=== PATIENT | female | born 1945 | race Caucasian/White ===

== ENCOUNTER 2024-05-10 10:15 | Inpatient (IN) | payer OTHER ==
[2024-05-10 11:40] LABS: BASO % 0.7 % (0-2.0); EOS % 1.6 % (0-4.5); HEMATOCRIT 26.6 % (32.4-45.2); HEMOGLOBIN 8.5 GM/dL (10.7-15.3); LYMPH % 10.9 % (8-40); MCHC 32.1 g/dl (32.0-36.0); MEAN CELL VOLUME 80.9 fl (80-96); MEAN PLT VOLUME 6.9 fl (7.5-11.1); MONO % 6.1 % (3.8-10.2); NEUT % 80.7 % (42.8-82.8); PLATELET COUNT 786 10^3/uL (134-434); RBC 3.29 M/mm3 (3.60-5.2); RDW 17.6 % (11.6-15.6); WHITE BLOOD COUNT 11.2 K/mm3 (4.0-10.0)
[2024-05-10 11:41] LABS: VENOUS BASE EXCESS 0.3 mmol/L (-2-2); VENOUS PCO2 43.8 mmHg (38-52); VENOUS PH 7.383 (7.310-7.410)
[2024-05-10 11:54] LABS: INR 1.14 (0.83-1.09); PROTHROMBIN TIME (PATIENT) 12.8 SEC (9.7-13.0)
[2024-05-10] MEDS ORDERED: THIAMINE HCL 200 MG/2 ML VIAL ONE (12:01)
[2024-05-10] MEDS ORDERED: PIPERACILLIN/TAZOB 4.5 GM 4.5 GM/100 ML BAG IVPB ONE (12:02)
[2024-05-10 12:08] LABS: POTASSIUM 3.4 mmol/L (3.5-5.1)
[2024-05-10 12:10] LABS: ALBUMIN 2.8 g/dl (3.4-5.0); BLOOD UREA NITROGEN 17.4 mg/dL (7-18); CALCIUM 9.1 mg/dL (8.5-10.1)
[2024-05-10 12:13] LABS: CREATININE 0.7 mg/dL (0.55-1.3)
[2024-05-10 12:15] LABS: BILIRUBIN,TOTAL 0.9 mg/dL (0.2-1); TOT PROT 7.2 g/dl (6.4-8.2)
[2024-05-10] MEDS: THIAMINE HCL 200 MG/2 ML VIAL IVPB ONE (12:16)
[2024-05-10] MEDS: SODIUM CHLORIDE 0.9% 500 ML INFUS.BAG IV ONE (12:16)
[2024-05-10] MEDS: PIPERACILLIN/TAZOB 4.5 GM 4.5 GM in DEXTROSE 5%-WATER 100 ML IVPB ONE (12:16)
[2024-05-10] MEDS ORDERED: VANCOMYCIN 1 GM PREMIX (F) 1 GM/200 ML BAG ONE (14:08)
[2024-05-10] MEDS: VANCOMYCIN 1,000 MG in DEXTROSE 5%-WATER - 250 ML IVPB ONE ×2 (14:19)
[2024-05-10] MEDS: FLUCONAZOLE 400 MG/NS 200 ML IVPB ONE (16:29)
[2024-05-10] MEDS: ALBUTEROL SO4 2.5/IPRATROPIUM 0.5 INH SOL 3 ML VIAL.NEB. NEB SCH (20:05)
[2024-05-11] MEDS: PANTOPRAZOLE SODIUM 40 MG VIAL IVPUSH SCH (00:24)
[2024-05-11] MEDS: D5-1/2NS+20 MEQ KCL - 20 MEQ/1,000 ML INFUS.BAG IV SCH ×2 (00:25→17:30)
[2024-05-11] MEDS: KCL 10 MEQ IVPB 10 MEQ/100 ML INFUS.BAG IVPB SCH (00:25)
[2024-05-11 03:55] LABS: EPI CELLS 32 /uL (0-25.1); HYALINE CASTS 0 /uL (0-3.1); PH,URINE 7.5 (5.0-8.0); URINE APPEARANCE CLEAR; URINE BACTERIA 173 /uL (0-1359); URINE BILIRUBIN NEGATIVE (NEGATIVE); URINE COLOR YELLOW; URINE GLUCOSE (UA) NEGATIVE (NEGATIVE); URINE KETONE NEGATIVE (NEGATIVE); URINE LEUK ESTERASE 2+ (NEGATIVE); URINE NITRITE NEGATIVE (NEGATIVE); URINE PROTEIN NEGATIVE (NEGATIVE); URINE RBC 15 /uL (0-23.9); URINE WBC 93 /uL (0-25.8)
[2024-05-11 09:01] LABS: BASO % 0.5 % (0-2.0); EOS % 3.4 % (0-4.5); HEMATOCRIT 22.3 % (32.4-45.2); HEMOGLOBIN 7.4 GM/dL (10.7-15.3); LYMPH % 14.1 % (8-40); MCH 26.2 pg (25.7-33.7); MCHC 33.1 g/dl (32.0-36.0); MEAN CELL VOLUME 79.2 fl (80-96); MEAN PLT VOLUME 6.5 fl (7.5-11.1); MONO % 6.9 % (3.8-10.2); NEUT % 75.1 % (42.8-82.8); PLATELET COUNT 637 10^3/uL (134-434); RBC 2.82 M/mm3 (3.60-5.2); RDW 17.6 % (11.6-15.6); WHITE BLOOD COUNT 7.9 K/mm3 (4.0-10.0)
[2024-05-11 09:07] LABS: INR 1.13 (0.83-1.09)
[2024-05-11 09:09] LABS: CHLORIDE 94 mmol/L (98-107); SODIUM 132 mmol/L (136-145)
[2024-05-11 09:12] LABS: BLOOD UREA NITROGEN 6.5 mg/dL (7-18); GLUCOSE,RANDOM 86 mg/dL (74-106)
[2024-05-11 09:13] LABS: CALCIUM 7.8 mg/dL (8.5-10.1)
[2024-05-11 09:14] LABS: CO2 28 mmol/L (21-32); MAGNESIUM 1.7 mg/dL (1.8-2.4)
[2024-05-11] MEDS: LEVOTHYROXINE NA 88 MCG TABLET (FP) PO SCH (09:14)
[2024-05-11] MEDS: MELATONIN 5 MG TABLETS PO ONE (09:14)
[2024-05-11 09:15] LABS: CREATININE 0.5 mg/dL (0.55-1.3); SGOT/AST 32 U/L (15-37); SGPT/ALT 13 U/L (13-61)
[2024-05-11 09:16] LABS: BILIRUBIN,TOTAL 0.6 mg/dL (0.2-1); TOT PROT 5.8 g/dl (6.4-8.2)
[2024-05-11 09:17] LABS: ALK PHOS 94 U/L (45-117)
[2024-05-11 09:20] LABS: ALBUMIN 2.2 g/dl (3.4-5.0); ANION GAP 10 mmol/L (4-13); POTASSIUM 2.8 mmol/L (3.5-5.1)
[2024-05-11 12:26] LABS: IRON SERUM 15 ug/dL (50-175); TOTAL IRON BINDING CAPACITY 160 ug/dL (250-450)
[2024-05-11] MEDS: CLOPIDOGREL BISULFATE 75 MG TABLET (FP) PO SCH (13:53)
[2024-05-11] MEDS: MAGNESIUM OXIDE 400 MG TABLET (FP) PO SCH (13:53)
[2024-05-11] MEDS: ASPIRIN COATED 81 MG TABLET.EC PO SCH (13:53)
[2024-05-11] MEDS: POTASSIUM CHLORIDE ORAL LIQUID 20 MEQ/15 ML PO SCH (13:53)
[2024-05-11 15:03] VITALS: BMI 14.4
[2024-05-11] MEDS: IRON SUCROSE INJECTION 200 MG in SODIUM CHLORIDE 100 ML IVPB ONE (16:04)
[2024-05-11] MEDS: POTASSIUM CHLORIDE TABS 20 MEQ TABLET.ER (FP) PO ONE (18:41)
[2024-05-11] MEDS: MELATONIN 5 MG TABLETS PO SCH (21:07)
[2024-05-12] MEDS: FERROUS GLUCONATE 324 MG TAB (FP) PO SCH (10:37)
[2024-05-12 11:16] LABS: POTASSIUM 4.9 mmol/L (3.5-5.1)
[2024-05-12 11:21] LABS: HEMATOCRIT 23.6 % (32.4-45.2); HEMOGLOBIN 7.6 GM/dL (10.7-15.3); MCH 26.6 pg (25.7-33.7); MCHC 32.4 g/dl (32.0-36.0); MEAN CELL VOLUME 82.2 fl (80-96); MEAN PLT VOLUME 7.4 fl (7.5-11.1); PLATELET COUNT 712 10^3/uL (134-434); RBC 2.87 M/mm3 (3.60-5.2); RDW 17.4 % (11.6-15.6); WHITE BLOOD COUNT 9.3 K/mm3 (4.0-10.0)
[2024-05-12 11:29] LABS: BILIRUBIN,TOTAL 0.6 mg/dL (0.2-1)
[2024-05-12 11:30] LABS: ALBUMIN 2.2 g/dl (3.4-5.0); BLOOD UREA NITROGEN 4.7 mg/dL (7-18); CREATININE 0.6 mg/dL (0.55-1.3); MAGNESIUM 1.6 mg/dL (1.8-2.4); TOT PROT 6.1 g/dl (6.4-8.2)
[2024-05-12] MEDS: D5-NS + 20 MEQ KCL - 20 MEQ/1,000 ML INFUS.BAG IV SCH (13:56)
[2024-05-12 14:14] LABS: PH,URINE 8.5 (5.0-8.0); URINE APPEARANCE CLEAR; URINE BILIRUBIN NEGATIVE (NEGATIVE); URINE COLOR YELLOW; URINE GLUCOSE (UA) NEGATIVE (NEGATIVE); URINE KETONE NEGATIVE (NEGATIVE); URINE LEUK ESTERASE NEGATIVE (NEGATIVE); URINE NITRITE NEGATIVE (NEGATIVE); URINE PROTEIN NEGATIVE (NEGATIVE)
[2024-05-13] MEDS: MAGNESIUM OXIDE 400 MG TABLET (FP) PO SCH ×2 (09:18→10:01)
[2024-05-14] MEDS: DEXTROSE 5%-NORMAL SALINE 1,000 ML IV SCH ×2 (00:38→16:45)
[2024-05-14 09:17] LABS: BASO % 0.6 % (0-2.0); EOS % 0.8 % (0-4.5); HEMATOCRIT 22.5 % (32.4-45.2); HEMOGLOBIN 7.4 GM/dL (10.7-15.3); LYMPH % 15.2 % (8-40); MCH 26.9 pg (25.7-33.7); MCHC 33.1 g/dl (32.0-36.0); MEAN CELL VOLUME 81.3 fl (80-96); MEAN PLT VOLUME 6.8 fl (7.5-11.1); MONO % 7.8 % (3.8-10.2); NEUT % 75.6 % (42.8-82.8); PLATELET COUNT 589 10^3/uL (134-434); RBC 2.76 M/mm3 (3.60-5.2); RDW 17.5 % (11.6-15.6); WHITE BLOOD COUNT 8.7 K/mm3 (4.0-10.0)
[2024-05-14 09:19] LABS: INR 1.16 (0.83-1.09); PROTHROMBIN TIME (PATIENT) 13.1 SEC (9.7-13.0)
[2024-05-14 09:51] LABS: POTASSIUM 4.6 mmol/L (3.5-5.1)
[2024-05-14 09:54] LABS: ALBUMIN 2.1 g/dl (3.4-5.0); CALCIUM 7.9 mg/dL (8.5-10.1)
[2024-05-14 09:55] LABS: BLOOD UREA NITROGEN 4.9 mg/dL (7-18)
[2024-05-14 09:57] LABS: CREATININE 0.5 mg/dL (0.55-1.3)
[2024-05-14 09:58] LABS: BILIRUBIN,TOTAL 0.4 mg/dL (0.2-1)
[2024-05-14 09:59] LABS: TOT PROT 5.3 g/dl (6.4-8.2)
[2024-05-14] MEDS: LORazepam 2 MG/ML SDV VIAL IVPB ONE (13:13)
[2024-05-14] MEDS: IRON SUCROSE INJECTION 200 MG in SODIUM CHLORIDE 100 ML IVPB ONE (16:29)
[2024-05-14 20:07] LABS: IG A QN SERUM. 171 mg/dL (64-422)
[2024-05-15] MEDS: SERTRALINE HCL 25 MG TABLET (FP) PO SCH (09:49)
[2024-05-15] MEDS: MELATONIN 5 MG TABLETS PO SCH (21:10)
[2024-05-16 09:05] LABS: POTASSIUM 4.6 mmol/L (3.5-5.1)
[2024-05-16 09:10] LABS: ALBUMIN 2.1 g/dl (3.4-5.0); BLOOD UREA NITROGEN 4.6 mg/dL (7-18); CALCIUM 7.9 mg/dL (8.5-10.1)
[2024-05-16 09:12] LABS: MAGNESIUM 1.9 mg/dL (1.8-2.4)
[2024-05-16 09:14] LABS: CREATININE 0.4 mg/dL (0.55-1.3)
[2024-05-16 09:15] LABS: BILIRUBIN,TOTAL 0.7 mg/dL (0.2-1); TOT PROT 5.4 g/dl (6.4-8.2)
[2024-05-16] MEDS: PANTOPRAZOLE 40 MG TABLET PO SCH (09:30)
[2024-05-16] MEDS: FUROSEMIDE 40 MG/4 ML INJECTABLE VIAL IVPUSH SCH (13:01)
[2024-05-16] MEDS: IRON SUCROSE INJECTION 200 MG in SODIUM CHLORIDE 100 ML IVPB ONE (13:07)
[2024-05-16] MEDS: SODIUM CHLORIDE 1 GM TABLET PO ONE (16:28)
[2024-05-17 09:38] LABS: BASO % 0.7 % (0-2.0); EOS % 1.3 % (0-4.5); HEMATOCRIT 27.3 % (32.4-45.2); LYMPH % 13.8 % (8-40); MCH 27.4 pg (25.7-33.7); MCHC 33.1 g/dl (32.0-36.0); MEAN CELL VOLUME 82.9 fl (80-96); MEAN PLT VOLUME 6.9 fl (7.5-11.1); MONO % 7.6 % (3.8-10.2); NEUT % 76.6 % (42.8-82.8); PLATELET COUNT 579 10^3/uL (134-434); RBC 3.29 M/mm3 (3.60-5.2); RDW 16.6 % (11.6-15.6); WHITE BLOOD COUNT 8.4 K/mm3 (4.0-10.0)
[2024-05-17 10:03] LABS: POTASSIUM 4.3 mmol/L (3.5-5.1)
[2024-05-17 10:07] LABS: ALBUMIN 2.2 g/dl (3.4-5.0); BLOOD UREA NITROGEN 6.9 mg/dL (7-18); CALCIUM 8.1 mg/dL (8.5-10.1)
[2024-05-17] MEDS: ESCITALOPRAM OXALATE 10 MG TABLET PO SCH (10:08)
[2024-05-17 10:10] LABS: CREATININE 0.5 mg/dL (0.55-1.3)
[2024-05-17 10:12] LABS: BILIRUBIN,TOTAL 1.2 mg/dL (0.2-1); TOT PROT 5.8 g/dl (6.4-8.2)
[2024-05-17] MEDS: guaiFENesin/CODEINE 5 ML UNIT-DOSE CUPS PO PRN (11:04)
[2024-05-17] MEDS: clonazePAM 0.25 MG ODT TABLETS SL PRN (11:04)
[2024-05-17] MEDS: LIDOCAINE 5% TOPICAL PATCH TP SCH (11:50)
[2024-05-17] MEDS: SODIUM CHLORIDE 1 GM TABLET PO SCH (15:35)
[2024-05-17] MEDS: AMINO ACIDS/PROTEIN HYDROLYS 30 ML LIQUID.PKT PO SCH (17:36)
[2024-05-17] MEDS: LIDOCAINE PATCH REMOVAL MC SCH (21:24)
[2024-05-18 09:26] LABS: BASO % 0.2 % (0-2.0); HEMATOCRIT 24.8 % (32.4-45.2); HEMOGLOBIN 8.3 GM/dL (10.7-15.3); LYMPH % 12.6 % (8-40); MCH 27.6 pg (25.7-33.7); MCHC 33.6 g/dl (32.0-36.0); MEAN CELL VOLUME 82.1 fl (80-96); MEAN PLT VOLUME 6.4 fl (7.5-11.1); MONO % 7.6 % (3.8-10.2); NEUT % 78.6 % (42.8-82.8); PLATELET COUNT 511 10^3/uL (134-434); RBC 3.01 M/mm3 (3.60-5.2); RDW 17.2 % (11.6-15.6); WHITE BLOOD COUNT 7.1 K/mm3 (4.0-10.0)
[2024-05-18 10:02] LABS: POTASSIUM 4.6 mmol/L (3.5-5.1)
[2024-05-18 10:05] LABS: ALBUMIN 2.1 g/dl (3.4-5.0); BLOOD UREA NITROGEN 11.8 mg/dL (7-18)
[2024-05-18 10:08] LABS: CREATININE 0.4 mg/dL (0.55-1.3)
[2024-05-18 10:09] LABS: BILIRUBIN,TOTAL 0.6 mg/dL (0.2-1)
[2024-05-18 10:10] LABS: TOT PROT 5.3 g/dl (6.4-8.2)
[2024-05-20] MEDS: clonazePAM 0.5 MG TABLET PO ONE (01:47)
[2024-05-20 11:04] LABS: POTASSIUM 4.7 mmol/L (3.5-5.1)
[2024-05-20 11:07] LABS: ALBUMIN 2.1 g/dl (3.4-5.0); CALCIUM 8.2 mg/dL (8.5-10.1)
[2024-05-20 11:11] LABS: CREATININE 0.5 mg/dL (0.55-1.3)
[2024-05-20 11:12] LABS: BILIRUBIN,TOTAL 0.7 mg/dL (0.2-1); TOT PROT 5.5 g/dl (6.4-8.2)
[2024-05-21] MEDS: clonazePAM 0.5 MG TABLET PO ONE (03:23)
[2024-05-21 10:39] LABS: EOS % 0.6 % (0-4.5); HEMATOCRIT 25.8 % (32.4-45.2); HEMOGLOBIN 8.3 GM/dL (10.7-15.3); LYMPH % 13.8 % (8-40); MCHC 32.1 g/dl (32.0-36.0); MEAN PLT VOLUME 6.7 fl (7.5-11.1); MONO % 8.1 % (3.8-10.2); NEUT % 76.5 % (42.8-82.8); PLATELET COUNT 531 10^3/uL (134-434); RBC 3.07 M/mm3 (3.60-5.2); RDW 17.7 % (11.6-15.6); WHITE BLOOD COUNT 8.5 K/mm3 (4.0-10.0)
[2024-05-21 10:55] LABS: POTASSIUM 4.6 mmol/L (3.5-5.1)
[2024-05-21 10:58] LABS: BLOOD UREA NITROGEN 14.8 mg/dL (7-18)
[2024-05-21 11:01] LABS: CREATININE 0.4 mg/dL (0.55-1.3)
[2024-05-21 11:03] LABS: BILIRUBIN,TOTAL 0.6 mg/dL (0.2-1); TOT PROT 5.3 g/dl (6.4-8.2)
[2024-05-21] MEDS ORDERED: MIDAZOLAM HCL 2 MG/2 ML SINGLE DOSE VIAL ONE (12:47)
[2024-05-21] MEDS ORDERED: FENTANYL CITRATE/PF 50 MCG/ML VIAL ONE (12:47)
[2024-05-21] MEDS: MIDAZOLAM HCL 2 MG/2 ML SINGLE DOSE VIAL IVPUSH ONE (13:10)
[2024-05-21] MEDS: FENTANYL CITRATE/PF 50 MCG/ML VIAL IVPUSH ONE (13:10)
[2024-05-22] MEDS: ACETAMINOPHEN 500 MG TABLET (FP) PO ONE ×2 (06:44→07:16)
[2024-05-22 08:58] LABS: BASO % 0.7 % (0-2.0); EOS % 0.5 % (0-4.5); HEMOGLOBIN 9.1 GM/dL (10.7-15.3); LYMPH % 11.7 % (8-40); MCH 28.1 pg (25.7-33.7); MCHC 33.7 g/dl (32.0-36.0); MEAN CELL VOLUME 83.5 fl (80-96); MEAN PLT VOLUME 6.5 fl (7.5-11.1); MONO % 8.1 % (3.8-10.2); PLATELET COUNT 529 10^3/uL (134-434); RBC 3.24 M/mm3 (3.60-5.2); RDW 18.1 % (11.6-15.6); WHITE BLOOD COUNT 7.8 K/mm3 (4.0-10.0)
[2024-05-22 09:18] LABS: POTASSIUM 4.2 mmol/L (3.5-5.1)
[2024-05-22 09:22] LABS: CALCIUM 7.9 mg/dL (8.5-10.1)
[2024-05-22 09:23] LABS: ALBUMIN 2.1 g/dl (3.4-5.0); BLOOD UREA NITROGEN 19.1 mg/dL (7-18)
[2024-05-22 09:25] LABS: CREATININE 0.5 mg/dL (0.55-1.3)
[2024-05-22 09:27] LABS: BILIRUBIN,TOTAL 0.7 mg/dL (0.2-1); TOT PROT 5.6 g/dl (6.4-8.2)
[2024-05-22 11:33] VITALS: RESP 18
[2024-05-23] MEDS: ACETAMINOPHEN 500 MG TABLET (FP) PO ONE (03:18)
[2024-05-23] MEDS ORDERED: ACETAMINOPHEN 1000 MG/100 ML BAG IVPB PRN (08:59)
[2024-05-23] MEDS: oxyCODONE HCL 5 MG TABLET PO PRN (09:13)
[2024-05-23 10:01] LABS: POTASSIUM 4.3 mmol/L (3.5-5.1)
[2024-05-23 10:20] LABS: BLOOD UREA NITROGEN 20.7 mg/dL (7-18); CALCIUM 7.9 mg/dL (8.5-10.1)
[2024-05-23 10:22] LABS: CREATININE 0.4 mg/dL (0.55-1.3)
[2024-05-23] MEDS: SODIUM CHLORIDE 500 ML IV STA (14:26)
[2024-05-24 08:42] LABS: POTASSIUM 4.2 mmol/L (3.5-5.1)
[2024-05-24 08:43] LABS: BLOOD UREA NITROGEN 17.2 mg/dL (7-18)
[2024-05-24 08:47] LABS: CREATININE 0.4 mg/dL (0.55-1.3)
[2024-05-24] MEDS: CLOPIDOGREL BISULFATE 75 MG TABLET (FP) PO SCH (09:09)
[2024-05-24] MEDS: ALBUTEROL SO4 2.5/IPRATROPIUM 0.5 INH SOL 3 ML VIAL.NEB. NEB SCH (20:09)
[2024-05-25] MEDS ORDERED: oxyCODONE HCL 5 MG TABLET PO PRN (08:45)
[2024-05-25 12:00] VITALS: BP 98/56; PULSE 101; TEMP 98.3
== END 2024-05-25 12:22 | DRG 374 ==
LOC: JER 10:15 → JERBED 16:42 → J6S 18:19
PROVIDERS: ADMIT Family Medicine; ATTEND Family Medicine
PROC: 0DJ08ZZ Inspection of Upper Intestinal Tract, Via Natural or Artificial Opening Endoscopic (ICD-10-PCS; principal; 2024-05-14 12:45)
PROC: 0FB23ZX Excision of Left Lobe Liver, Percutaneous Approach, Diagnostic (ICD-10-PCS; 2024-05-21)
DX: D49.0 Neoplasm of unspecified behavior of digestive system (principal); E43 Unspecified severe protein-calorie malnutrition; B37.0 Candidal stomatitis; R64 Cachexia; Z68.1 Body mass index [BMI] 19.9 or less, adult; R16.0 Hepatomegaly, not elsewhere classified; I25.10 Atherosclerotic heart disease of native coronary artery without angina pectoris; K21.9 Gastro-esophageal reflux disease without esophagitis; I10 Essential (primary) hypertension; E03.9 Hypothyroidism, unspecified; E78.5 Hyperlipidemia, unspecified; R91.1 Solitary pulmonary nodule; D64.9 Anemia, unspecified; Z95.5 Presence of coronary angioplasty implant and graft; Z88.0 Allergy status to penicillin; R16.1 Splenomegaly, not elsewhere classified; R13.10 Dysphagia, unspecified; E87.6 Hypokalemia; E83.42 Hypomagnesemia; K44.9 Diaphragmatic hernia without obstruction or gangrene
CPT/HCPCS: 0241U-QW; 36415; 36430; 70450-TC; 71045-TC-FY; 71275-TC; 72125-TC; 74177-TC; 74183-TC; 76942-TC; 80048; 80053; 81003; 82105; 82272; 82378; 82436; 82728; 82784; 82803; 82962; 83540; 83550; 83605; 83615; 83735; 83883; 83930; 83935; 84133; 84155; 84165; 84300; 84443; 84484; 85025; 85027; 85610; 85730; 86334; 86704; 86708; 86803; 86850; 86900; 86901; 86922; 87040; 87070; 87086; 87340; 87517; 87651; 88307-TC; 88341-TC; 88342-TC; 93005; 93010; 94640; 97116-GP; 97162-GP; 99285-25; J1756; P9058; Q9967